=== PATIENT | male | born 1955 | race Two or more races ===

== ENCOUNTER 2017-10-05 13:47 | Inpatient (IN) | payer MEDICAID ==
[~2017-10-05] VITALS: Ht 177.8 cm; Wt 95.9 kg
--- NOTE | 2017-10-05 14:07 | NUR ---
DR HERNNADEZ AT BEDSIDE FOR EVAL.
--- NOTE | 2017-10-05 14:09 | NUR ---
IV LINE STARTED. BLOOD DRAWN AND SENT TO LAB.
--- NOTE | 2017-10-05 14:12 | NUR ---
PT PB FROM HOME TO ER BED 10. C/O L UPPER ARM PAIN S/P PULLING HIS SHEETS BY HIS RT ARM AND SOMEWHAT HIS L UPPER ARM WAS PULLED AND HEARD A "SNAP." DEFORMITY NOTED. 08/01 PAIN. R SHOULDER STATES BEEN BOTHERING HIM FOR DAYS NOW. GOWNED AND PLACED ON MONITOR. STABLE VITALS. AWAITING MD BENTLEY.
[2017-10-05 14:18] LABS: BASOPHILS # (AUTO) 0.1 /CMM (0.0-0.2); BASOPHILS % (AUTO) 0.6 % (0.0-2.0); EOSINOPHILS % (AUTO) 0.5 % (0.0-6.0); HEMATOCRIT 43 % (39-51); HEMOGLOBIN 14.4 g/dL (13.5-17.5); LYMPHOCYTES # (AUTO) 1.1 /CMM (0.8-4.8); LYMPHOCYTES % (AUTO) 11.6 % (20.0-44.0); MEAN CORPUSCULAR HEMOGLOBIN 31 PG (26.0-33.0); MEAN CORPUSCULAR HGB CONC 34 g/dl (31.0-36.0); MEAN CORPUSCULAR VOLUME 93 fL (80-96); MONOCYTES # (AUTO) 0.7 /CMM (0.1-1.30); MONOCYTES % (AUTO) 7.1 % (2.0-12.0); NEUTROPHILS # (AUTO) 7.5 /CMM (1.8-8.9); NEUTROPHILS % (AUTO) 80.2 % (43.0-81.0); PLATELET COUNT (AUTO) 175 /CMM (150-450); RDW COEFFICIENT OF VARIATION 18.7 (11.5-15.0); RED BLOOD CELL COUNT(AUTO) 4.61 MIL/uL (4.5-6.0); WHITE BLOOD COUNT (AUTO) 9.3 K/uL (4.3-11.0)
[2017-10-05] MEDS ORDERED: MORPHINE SULFATE INJ 2 MG/ML DISP.SYRIN ONE ×2 (14:22→15:14)
[2017-10-05] MEDS ORDERED: MORPHINE SULFATE INJ 4 MG/ML DISP.SYRIN ONE ×2 (14:22→15:14)
[2017-10-05] MEDS ORDERED: ONDANSETRON HCL/PF 4 MG/2 ML VIAL ONE (14:25)
--- NOTE | 2017-10-05 14:29 | NUR ---
RADIOLOGY AT BEDSIDE FOR L HUMERUS XRAY.
[2017-10-05] MEDS ORDERED: ONDANSETRON HCL/PF 4 MG/2 ML VIAL IVP ONE (14:30)
[2017-10-05] MEDS ORDERED: MORPHINE SULFATE INJ 2 MG/ML DISP.SYRIN IV ONE (14:30)
[2017-10-05 14:34] LABS: CALCIUM, SERUM 9.5 mg/dL (8.5-10.1); CREATININE 1.2 mg/dL (0.6-1.3); POTASSIUM 3.9 mmol/L (3.5-5.1)
[2017-10-05 14:40] LABS: INR 0.96 (0.87-1.13)
[2017-10-05] MEDS ORDERED: IBUP-1953 PO (14:53)
[2017-10-05] MEDS ORDERED: MORPHINE SULFATE INJ 10 MG/ML DISP.SYRIN IM ONE (15:30)
--- NOTE | 2017-10-05 15:33 | NUR ---
DR. DESTINEY BARILLAS.
--- NOTE | 2017-10-05 15:36 | NUR ---
ORTHO ON-CALL PAGED.
--- NOTE | 2017-10-05 16:37 | NUR ---
REPORT GIVEN TO BERT. PT AWAITING TRANSFER TO FLOOR.
[2017-10-05 16:50] VITALS: BP 126/78
[2017-10-05] MEDS ORDERED: MAG HYDROX/AL HYDROX/SIMETH 30 ML UDC PO PRN (17:00)
[2017-10-05] MEDS ORDERED: ZOLPIDEM TARTRATE 5 MG TABLET PO PRN (17:00)
[2017-10-05] MEDS ORDERED: ACETAMINOPHEN 325 MG TABLET PO PRN (17:00)
[2017-10-05] MEDS ORDERED: MAGNESIUM HYDROXIDE 30 ML UDC PO PRN (17:00)
[2017-10-05] MEDS ORDERED: Z GUARD REMEDY 2 OZ OINT TP PRN (17:00)
[2017-10-05] MEDS ORDERED: ONDANSETRON HCL/PF 4 MG/2 ML VIAL IVP PRN (17:00)
[2017-10-05] MEDS ORDERED: THIAMINE HCL 100 MG TABLET PO ONE (17:30)
--- NOTE | 2017-10-05 17:30 | NUR ---
MS RN RECEIVED A NEW ADMISSION FROM ER, AWAKE,ALERT,ORIENTED X4,NOT IN ANY FORM OF DISTRESS, RESPIRATIONS EVEN AND UNLABORED,NO SOB NOTED, LUNGS ARE CLEAR,ABDOMEN SOFT,POSITIVE BOWEL SOUNDS, DENIES PAIN AT THIS TIME, WILL MONITOR PATIENT, CAME IN W/ DX OF BILATERAL HUMERAL FRACTURE,ALL NEEDS ATTENDED.
[2017-10-05 17:44] LABS: TOTAL PROTEIN, SERUM 7.9 g/dL (6.4-8.2)
--- NOTE | 2017-10-05 17:59 | NUR ---
MS RN WAS SEEN BY DR. CONSTANCE Sullivan/ ORDERS MADE AND CARRIED OUT, WILL MONITOR PATIENT.
[2017-10-05] MEDS: HYDROCODONE/APAP 5/325MG 1 EACH TABLET PO PRN ×2 (18:13→22:46)
--- NOTE | 2017-10-05 18:52 | NUR ---
RN FOR SURGERY TOMORROW,CONSENT SIGNED.
[2017-10-05] MEDS ORDERED: LORAZEPAM INJ 2 MG/ML VIAL IV PRN (19:00)
[2017-10-05 19:16] LABS: THYROID STIMULATING HORMONE 0.516 uIU/mL (0.358-3.74)
--- NOTE | 2017-10-05 19:30 | NUR ---
BELT SANDER STONE OPENING NOTES RECEIVED PATIENT RESTING IN BED WATCHING TV, A & O X 4, RESP EVEN, NO ACUTE CHANGES NOTED. HAS MILD C/O PAIN TO BOTH ARMS BUT REFUSES TO TAKE PAIN MED @ THIS TIME & WILL LET THE NURSE KNOW WHEN THERE IS NEED FOR PAIN MED. ON TELE MONITORING WITH SR 83. WILL BE NPO AFTER MIDNIGHT FOR SCHEDULED SURGERY. IV ACCESS TO RFA, INTACT PATENT. BED IN LOW LOCKED POSITION. CALL LIGHT WITHIN REACH. WILL CONTINUE TO MONITOR CLOSELY.
[2017-10-05 20:00] VITALS: BP 153/101
[2017-10-05 20:12] VITALS: BP 137/86
[2017-10-05] MEDS: IV NS 0.9% 1,000 ML IV PRN (21:16)
--- NOTE | 2017-10-05 22:46 | NUR ---
PRN NORCO GIVEN PT C/O PAIN TO BOTH ARMS & ASKED FOR NORCO, WHICH IS EFFECTIVE FOR HIM (PER PT). PRN NORCO GIVEN & WILL REASSESS FOR EFFECTIVENESS.
[2017-10-06] VITALS (10 sets, daily range): BP systolic 121–187; BP diastolic 70–93
[2017-10-06] MEDS: HYDROCODONE/APAP 5/325MG 1 EACH TABLET PO PRN ×3 (03:03→20:36)
--- NOTE | 2017-10-06 03:03 | NUR ---
PRN NORCO GIVEN PT HAD C/O BILATERAL ARM PAIN, ASKED FOR PAIN MEDICINE, PRN NORCO GIVEN WITH SIP OF WATER. WILL REASSESS FOR EFFECTIVENESS.
[2017-10-06] MEDS: IV NS 0.9% 1,000 ML IV PRN (06:41)
--- NOTE | 2017-10-06 06:55 | NUR ---
BULB INSPECTOR CLOSING NOTES PT SLEPT INTERMITTENTLY @ NIGHT, A & O X 4, NO ACUTE CHANGES NOTED. ON TELE MONITORING WITH SR 77. PRN PAIN MEDS GIVEN DUE TO C/O PAIN TO BOTH ARMS & WAS EFFECTIVE. PT IS NPO AFTER MIDNIGHT FOR SCHEDULED SURGERY. HAS SLING TO RIGHT ARM & LEFT ARM COVERED WITH SUPPORTIVE BANDAGE. IV ACCESS TO RFA, INTACT PATENT, RUNNING WITH NS @ 100 ML/HR. BED IN LOW LOCKED POSITION. CALL LIGHT WITHIN REACH. WILL ENDORSE TO AM RN FOR CONTINUITY OF CARE.
--- NOTE | 2017-10-06 07:10 | NUR ---
OR NURSE CALLED OR NURSE CALLED TO CHECK IF PT IS READY FOR SURGERY, INFORMED HER THAT PT WILL BE SEEN BY DR IVEY YET TO CLEAR HIM FOR SURGERY. PER OR NURSE, TYPE & SCREEN NEEDS TO BE DONE. ENDORSED TO AM SHIFT RN TO CHECK WITH DR IVEY & TO HAVE TYPE & SCREEN DONE.
--- NOTE | 2017-10-06 07:30 | NUR ---
ROUNDSMAN INITIAL NOTES RECEIVED PATIENT IN BED, AOX3, NO SIGNS OF DISTRESS, ROOM AIR, CO OF PAIN DUE TO BILATERAL ARM FRACTURES, PAIN LEVEL 9/10 ON THE PAIN SCALE, WILL GIVE SCHEDULED NORCO, ON TELE MONITOR SR, NPO SINCE MIDNIGHT, IV RFA 18G NS @ 100ML/HR, AWAITING CONSULT BY DR IVEY TO CLEAR FOR SURGERY, SURGERY SCHEDULED FOR 10AM. ALL CONSENTS SIGNED, BED IN LOW AND LOCKED POSITION, CALL LIGHT WITHIN REACH, WILL CONTINUE TO MONITOR.
[2017-10-06 07:59] LABS: BASOPHILS # (AUTO) 0.1 /CMM (0.0-0.2); BASOPHILS % (AUTO) 0.8 % (0.0-2.0); EOSINOPHILS # (AUTO) 0.1 /CMM (0.0-0.7); EOSINOPHILS % (AUTO) 0.7 % (0.0-6.0); HEMATOCRIT 39 % (39-51); HEMOGLOBIN 13.2 g/dL (13.5-17.5); LYMPHOCYTES # (AUTO) 1.1 /CMM (0.8-4.8); LYMPHOCYTES % (AUTO) 12.9 % (20.0-44.0); MEAN CORPUSCULAR HEMOGLOBIN 32 PG (26.0-33.0); MEAN CORPUSCULAR HGB CONC 34 g/dl (31.0-36.0); MEAN CORPUSCULAR VOLUME 93 fL (80-96); MONOCYTES # (AUTO) 0.6 /CMM (0.1-1.30); NEUTROPHILS # (AUTO) 6.3 /CMM (1.8-8.9); NEUTROPHILS % (AUTO) 77.6 % (43.0-81.0); PLATELET COUNT (AUTO) 160 /CMM (150-450); RDW COEFFICIENT OF VARIATION 18.7 (11.5-15.0); RED BLOOD CELL COUNT(AUTO) 4.19 MIL/uL (4.5-6.0); WHITE BLOOD COUNT (AUTO) 8.2 K/uL (4.3-11.0)
[2017-10-06 08:12] LABS: CREATININE 1.1 mg/dL (0.6-1.3); MAGNESIUM 1.9 mg/dL (1.8-2.4); PHOSPHORUS 3.7 mg/dL (2.5-4.9); POTASSIUM 4.1 mmol/L (3.5-5.1)
[2017-10-06] MEDS: MULTIVITAMINS,THERAGRAN 1 UDTAB TABLET PO SCH (08:24)
[2017-10-06] MEDS ORDERED: ANESTHESIA TRAY IN PYXIS 1 EA TRAY MC ONE (08:40)
[2017-10-06] MEDS ORDERED: IV NS 0.9% 1,000 ML BAG IV SCH (09:00)
[2017-10-06] MEDS ORDERED: BACITRACIN 50000 UNITS/VIAL ONE (09:12)
--- NOTE | 2017-10-06 09:45 | NUR ---
MOTOR DRIVER NOTES PATIENT TAKEN TO OR FOR SURGERY, CLEARED BY CARDIO, DR NOLASCO AWARE OF ELEVATED BLOOD PRESSURE 187/76, OK FOR SURGERY.
[2017-10-06] MEDS ORDERED: FENTANYL PF 100MCG/2ML AMPUL ONE (09:55)
[2017-10-06] MEDS ORDERED: MORPHINE SULFATE INJ 10 MG/ML DISP.SYRIN ONE (09:55)
[2017-10-06] MEDS ORDERED: MIDAZOLAM HCL 2 MG/2ML VIAL ONE (10:00)
[2017-10-06] MEDS ORDERED: oxyCODONE/APAP (5/325 MG) 1 UDTAB TABLET PO PRN (13:30)
--- NOTE | 2017-10-06 13:58 | NUR ---
RESTUARANT CREW WORKER NOTES\ PATIENT RETURNED FROM SURGERY, STABLE, BILATERAL SLINGS ON BOTH ARMS, NEW IV PLACED ON LEFT FOOT DUE BOTH ARMS NEEDED FOR SURGERY ACCESS. OXYGEN ON ROOM AIR 92 PLACED ON 2L NASAL CANNULA WILL CONTINUE TO MONITOR. NO REQUEST FOR PAIN MEDICATION AT THIS TIME.
--- NOTE | 2017-10-06 16:48 | NUR ---
HEALTH AND FITNESS PROFESSOR NOTES PATIENT GETTING ECHO DONE.
--- NOTE | 2017-10-06 18:38 | NUR ---
TELEPHONE CLERK END NOTES PATIENT RESTING IN BED, NO SIGNS OF DISTRESS, ALL NEEDS ATTENDED TO, PATIENTS GF AT BEDSIDE FEEDING PATIENT , PAIN ASSESSED MEDICATIONS GIVEN, WILL ENDORSE TO ARCHITECTURE DRAFTER FOR CONTINUITY OF CARE.
--- NOTE | 2017-10-06 19:30 | NUR ---
RN NOTES: RECEIVED AWAKE ON BED,ON SEMI FOWLERS POSITION,BILATERAL SLINGS ON BOTH ARMS,NWB-BUE,IV LINE ON LEFT FOOT WITH IVF ONGOING.ON O2 AT 2L/MIN SPO2-99%,A/OX4,COOPERATIVE,CONTINENT USING URINAL,FALL,SAFETY AND ASPIRATION PRECAUTION OBSERVE, CALL LIGHT WITHIN EASY REACH, BED LOW AND LOCKED.
--- NOTE | 2017-10-06 20:00 | NUR ---
RN NOTES: FOR CT CHEST, HIS HAVING INTERMITTENT PAIN PER [facility](X-RAY DEPT) ITS NOT STAT ORDER, PATIENT REQUEST IF CAN BE DONE TOMORROW MORNING, SCHEDULED AT 9-10AM.KEPT RESTED AND MONITOR CLOSELY.ON ICE PACK.
--- NOTE | 2017-10-06 20:38 | NUR ---
RN NOTES: COMPLAINED OF PAIN 05/01 ON BUE. REQUEST FOR NORCO,GIVEN, NON PHARMACOLOGIC INTERVENTION RENDERED, DIM LIGHT AND ICE PACK RENDERED.WILL CONTINUE TO MONITOR FOR PAIN AND DISCOMFORT.
--- NOTE | 2017-10-06 21:40 | NUR ---
RN NOTES: ABLE TO SLEEP AT SHORT INTERVALS, STILL WITH INTERMITTEN PAIN, WILL CONTINUE TO MONITOR, KEPT IN COMFORTABLE POSITION.
[2017-10-07] MEDS: HYDROCODONE/APAP 5/325MG 1 EACH TABLET PO PRN ×7 (00:52→21:33)
--- NOTE | 2017-10-07 00:53 | NUR ---
RN NOTES: AWAKE, REQUEST FOR HIS PAIN MEDICATION 05/01 ON BUE,NON PHARMACOLOGIC INTERVENTION RENDERED, PRN MEDS GIVEN.KEPT IN COMFORTABLE POSITION.
--- NOTE | 2017-10-07 01:18 | NUR ---
RN NOTES: ABLE TO SLEEP AT SHORT INTERVALS, KEPT ON CLOSE VISUAL CHECK AND MONITOR FOR PAIN.CALL LIGHT WITHIN EASY REACH.
--- NOTE | 2017-10-07 02:00 | NUR ---
RN NOTES: ASLEEP,KEPT ON CLOSE WATCH.CALL LIGHT WITHIN EASY REACH, CALLS AND NEEDS ATTENDED.
[2017-10-07] MEDS: IV NS 0.9% 1,000 ML IV PRN (04:59)
--- NOTE | 2017-10-07 05:13 | NUR ---
RN NOTES: AFTER REPOSITIONING, COMPLAINED OF PAIN 05/01,REQUEST FOR NORCO, PAIN MEDICATION PRN GIVEN.IVF OF N/S AT 100ML/HR REGULATED VIA INFUSION PUMP.CALLS AND NEED ATTENDED.
--- NOTE | 2017-10-07 06:45 | NUR ---
RN NOTES: AWAKE IN BETWEEN, WATCHING TV, STILL WITH ON AND OFF PAIN, KEPT MONITORED,CALL LIGHT WITHIN EASY REACH, ENDORSED FOR CONTINUITY OF CARE.
--- NOTE | 2017-10-07 07:36 | NUR ---
MS RN OPENING NOTES RECEIVED PATIENT IN STABLE CONDITION. IN NO APPARENT DISTRESS. PATIENT IS RESTING IN BED. BEDSIDE RAILS ARE UP X2. BED IS LOCKED AND LOWERED. CALL LIGHT IS WITHIN REACH. WILL CONTINUE TO MONITOR.
[2017-10-07 08:00] VITALS: BP 136/79
[2017-10-07 08:13] LABS: FERRITIN 117 ng/mL (8-388)
[2017-10-07 08:25] LABS: ALBUMIN 2.5 g/dL (3.4-5.0); CALCIUM, SERUM 8.7 mg/dL (8.5-10.1); POTASSIUM 3.9 mmol/L (3.5-5.1); TOTAL PROTEIN, SERUM 6.8 g/dL (6.4-8.2)
--- NOTE | 2017-10-07 08:28 | NUR ---
PATIENT IN SURGERY YESTERDAY HAD RT AND LT HUMERUS IMAGES DONE ON LARGE C -ARM BUT THE DOCTOR ACCIDENTALLY UNPLUG THE C-ARM MONITOR ,LT HUMERUS IMAGES WAS DELETED PER JESÚS GUTIERREZ.
[2017-10-07] MEDS: MULTIVITAMINS,THERAGRAN 1 UDTAB TABLET PO SCH (09:03)
[2017-10-07] MEDS: FOLIC ACID 1 MG TABLET PO SCH (09:03)
[2017-10-07] MEDS: CYANOCOBALAMIN 500 MCG TABLET PO SCH (09:03)
[2017-10-07 09:12] LABS: IRON, SERUM 29 ug/dl (50-175); TOTAL IRON BINDING CAPACITY 296 ug/dl (250-450)
[2017-10-07] MEDS ORDERED: IOHEXOL-300 100 ML VIAL IV ONE (10:32)
[2017-10-07 16:00] VITALS: BP 147/88
[2017-10-07] MEDS: FERROUS SULFATE (325 MG) 325 MG/TAB TABLET PO SCH (17:18)
--- NOTE | 2017-10-07 18:47 | NUR ---
MS RN CLOSING NOTES PATIENT IS IN STABLE CONDITION. IN NO APPARENT DISTRESS. BEDSIDE RAILS ARE UP X2. BED IS LOCKED AND LOWERED. ALL NEEDS WERE MET. CALL LIGHT IS WITHIN REACH. WILL ENDORSE CARE TO GUSSET FOLDER NURSE FOR AIDEN.
--- NOTE | 2017-10-07 19:25 | NUR ---
MS/SPEECH PATHOLOGIST ASSISTANT; RECEIVED PT'S REPORTS FROM THE DAY SHIFT RN FOR CONTINUITY OF CARE. AT THIS TIME PT IS IN BED AWAKE QUIET, ALERT. DENIES PAIN. BOTH SHOULDERS INCISIONS WITH DRESSINGS ON INTACT AND DRY. BOTH ARMS WITH SLING ON. HL INTACT ON LT FOOT . BED ON LOWER POSITION AND LOCKED FOR SAFETY. SIDE RAILS ARE UP FOR SAFETY. CALL LIGHT WITHIN REACH. WITH SITTER PRESENT IN THE ROOM FOR SAFETY. WILL CONTINUE TO MONITOR.
[2017-10-07 20:00] VITALS: BP 154/70
[2017-10-08 01:30] VITALS: BP 149/72
[2017-10-08] MEDS: HYDROCODONE/APAP 5/325MG 1 EACH TABLET PO PRN ×6 (01:44→21:46)
[2017-10-08 05:45] VITALS: BP 160/78
--- NOTE | 2017-10-08 06:57 | NUR ---
MS/LACING CUTTER; PT SLEPT FAIRLY. BREATHING NON LABORED. PT HAS BEEN C/O PAIN BOTH ARMS DURING THE NIGHT AND PRN FOR PAIN HAS BEEN WITH GOOD RELIEF. CONTINUE TO MONITOR. CALL LIGHT WITHIN REACH. WILL ENDORSE TO THE DAY SHIFT RN FOR CONTINUITY OF CARE.
[2017-10-08 07:38] LABS: BASOPHILS % (AUTO) 0.4 % (0.0-2.0); EOSINOPHILS # (AUTO) 0.1 /CMM (0.0-0.7); EOSINOPHILS % (AUTO) 1.4 % (0.0-6.0); HEMATOCRIT 33 % (39-51); HEMOGLOBIN 11.1 g/dL (13.5-17.5); LYMPHOCYTES # (AUTO) 0.9 /CMM (0.8-4.8); LYMPHOCYTES % (AUTO) 12.5 % (20.0-44.0); MEAN CORPUSCULAR HEMOGLOBIN 32 PG (26.0-33.0); MEAN CORPUSCULAR HGB CONC 34 g/dl (31.0-36.0); MEAN CORPUSCULAR VOLUME 94 fL (80-96); MONOCYTES # (AUTO) 0.6 /CMM (0.1-1.30); MONOCYTES % (AUTO) 8.2 % (2.0-12.0); NEUTROPHILS # (AUTO) 5.5 /CMM (1.8-8.9); NEUTROPHILS % (AUTO) 77.5 % (43.0-81.0); PLATELET COUNT (AUTO) 152 /CMM (150-450); RDW COEFFICIENT OF VARIATION 18.4 (11.5-15.0); RED BLOOD CELL COUNT(AUTO) 3.52 MIL/uL (4.5-6.0); WHITE BLOOD COUNT (AUTO) 7.1 K/uL (4.3-11.0)
[2017-10-08 07:58] LABS: POTASSIUM 3.7 mmol/L (3.5-5.1)
[2017-10-08 08:00] VITALS: BP 143/81
[2017-10-08] MEDS: CYANOCOBALAMIN 500 MCG TABLET PO SCH (08:04)
[2017-10-08] MEDS: MULTIVITAMINS,THERAGRAN 1 UDTAB TABLET PO SCH (08:04)
[2017-10-08] MEDS: FERROUS SULFATE (325 MG) 325 MG/TAB TABLET PO SCH ×2 (08:04→16:34)
[2017-10-08] MEDS: ERGOCALCIFEROL (VITAMIN D 2) 50,000 UNIT CAPSULE PO SCH (08:04)
[2017-10-08] MEDS: FOLIC ACID 1 MG TABLET PO SCH (08:04)
[2017-10-08 16:00] VITALS: BP 138/84
--- NOTE | 2017-10-08 18:48 | NUR ---
MS RN CLOSING NOTES PATIENT IS IN STABLE CONDITION. IN NO APPARENT DISTRESS. PATIENT IS RELAXING IN BED. CALL LIGHT IS WITHIN REACH BEDSIDE RAILS ARE UP X2. BED IS LOCKED AND LOWERED. ALL NEEDS WERE MET. WILL ENDORSE CARE TO COMPOSITION ROLL MAKER AND CUTTER NURSE FOR AIDEN.
--- NOTE | 2017-10-08 19:25 | NUR ---
MS RN OPENING NOTES: RECEIVED PT IN BED AND IS AWAKE. PT A/OX4. PT SITTING UP IN BED WITHOUT THE SLINGS ON BILATERAL ARMS. NO SOB NOTED. NO S/S OF DISTRESS NOTED AT THIS TIME. PT SAID HE DOES NOT WANT TO WEAR IT AT THIS TIME. PT HAS IV ON L FOOT #22G AND IS CURRENTLY S/L. CALL LIGHT WITHIN PT'S REACH. BED KEPT IN LOW, LOCKED POSITION, AND SIDE RAILS X 2 UP. WILL CONTINUE TO MONITOR PT.
[2017-10-08 20:00] VITALS: BP 138/68
--- NOTE | 2017-10-08 21:46 | NUR ---
MS RN NOTES: PT IS COMPLAINING OF 8/10 BILATERAL ARM AND ELBOW PAIN. PT WAS ADMINISTERED 2 TABS OF NORCO 5. WILL CONTINUE TO MONITOR PT.
[2017-10-09] MEDS: HYDROCODONE/APAP 5/325MG 1 EACH TABLET PO PRN ×6 (01:49→22:40)
--- NOTE | 2017-10-09 01:49 | NUR ---
MS RN NOTES: PT COMPLAINING OF LEFT AND RIGHT ARM AND ELBOW PAIN 05/01. PT WAS ADMINISTERED 2 TABS OF NORCO 5. WILL CONTINUE TO MONITOR PT.
--- NOTE | 2017-10-09 06:50 | NUR ---
MS RN CLOSING NOTES: ALL NEEDS WERE ATTENDED AND ANTICIPATED FOR. PT IN BED AND IS RESTING AT THIS TIME. PT A/OX4. PT SITTING UP IN BED WITHOUT THE SLINGS ON BILATERAL ARMS. OFFERED PT TO PUT ON SLINGS BUT WOULD LIKE TO LEAVE IT OFF AND HAVE THEM APPLIED WHEN SEEN BY PT. NO SOB NOTED. NO S/S OF DISTRESS NOTED AT THIS TIME. PT HAS IV ON L FOOT #22G AND IS CURRENTLY S/L. CALL LIGHT WITHIN PT'S REACH. BED KEPT IN LOW, LOCKED POSITION, AND SIDE RAILS X 2 UP. WILL ENDORSE TO AM NURSE FOR AIDEN.
[2017-10-09 07:04] LABS: BASOPHILS % (AUTO) 0.3 % (0.0-2.0); EOSINOPHILS # (AUTO) 0.2 /CMM (0.0-0.7); EOSINOPHILS % (AUTO) 1.9 % (0.0-6.0); HEMATOCRIT 36 % (39-51); HEMOGLOBIN 11.9 g/dL (13.5-17.5); LYMPHOCYTES # (AUTO) 1.1 /CMM (0.8-4.8); LYMPHOCYTES % (AUTO) 12.5 % (20.0-44.0); MEAN CORPUSCULAR HEMOGLOBIN 32 PG (26.0-33.0); MEAN CORPUSCULAR HGB CONC 34 g/dl (31.0-36.0); MEAN CORPUSCULAR VOLUME 94 fL (80-96); MONOCYTES # (AUTO) 0.8 /CMM (0.1-1.30); MONOCYTES % (AUTO) 9.1 % (2.0-12.0); NEUTROPHILS # (AUTO) 6.8 /CMM (1.8-8.9); NEUTROPHILS % (AUTO) 76.2 % (43.0-81.0); PLATELET COUNT (AUTO) 204 /CMM (150-450); RDW COEFFICIENT OF VARIATION 18.5 (11.5-15.0); RED BLOOD CELL COUNT(AUTO) 3.78 MIL/uL (4.5-6.0); WHITE BLOOD COUNT (AUTO) 8.9 K/uL (4.3-11.0)
[2017-10-09 07:47] LABS: CALCIUM, SERUM 9.5 mg/dL (8.5-10.1); POTASSIUM 3.8 mmol/L (3.5-5.1)
--- NOTE | 2017-10-09 07:59 | NUR ---
MS RN NOTES' PATIENT IN BED, AWAKE, A/O X4. ON ROOM AIR, TOLERATING WELL. NO SOB. BILATERAL SHOULDER SURGICAL INCISION, DRESSING INTACT, NO BLEEDING NOTED. APPEARS COMFORTABLE IN BED, IVC IN LEFT FOOT G20 INTACT. CALL LIGHT WITHIN REACH. WILL CONT TO MONITOR.
[2017-10-09 08:00] VITALS: BP 163/79
[2017-10-09 08:14] LABS: *SPE A/G RATIO 0.9 (0.7-1.7); *SPE ALBUMIN 3.2 g/dL (2.9-4.4); *SPE ALPHA-1-GLOBULIN 0.3 g/dL (0.0-0.4); *SPE GLOBULIN, TOTAL 3.7 g/dL (2.2-3.9); *SPE M-SPIKE Not Observed g/dL (Not Observed); *SPEGAMMA GLOBULIN 1.4 g/dL (0.4-1.8)
[2017-10-09] MEDS: FERROUS SULFATE (325 MG) 325 MG/TAB TABLET PO SCH ×2 (08:17→16:23)
[2017-10-09] MEDS: CYANOCOBALAMIN 500 MCG TABLET PO SCH (08:17)
[2017-10-09] MEDS: FOLIC ACID 1 MG TABLET PO SCH (08:17)
[2017-10-09] MEDS: MULTIVITAMINS,THERAGRAN 1 UDTAB TABLET PO SCH (09:49)
[2017-10-09 16:00] VITALS: BP 179/80
--- NOTE | 2017-10-09 16:07 | NUR ---
PATIENT IS SEEN BY PT TODAY, PARTICIPATED WELL. PATIENT AMBULATE WITH PT, TOLERATED WELL.
[2017-10-09 16:40] VITALS: BP 179/80
--- NOTE | 2017-10-09 16:40 | NUR ---
ELEVATED BP 179/80 P 96. RECORDS SHOWED INCREASING BP SINCE Sep, PATIENT IS NOT ON ANY SCHEDULED OR PRN BP MEDS. CALLED SPOKE TO DR. NOLASCO, PATIENT HAD PT TODAY AND MEDICATED WITH NORCO PO PRN DURING THE SHIFT, PER MD TO CONTINUE MONITOR PATIENT, NO BP MEDS AT THIS TIME, POSSIBLE INCREASING BP DUE TO FRACTURE AND PAIN. WILL ENDORSE TO DIRECTOR LAW ENFORCEMENT RN.
[2017-10-09 18:08] VITALS: BP 160/88
--- NOTE | 2017-10-09 18:52 | NUR ---
MS RN CLOSING NOTES PATIENT IN BED, A/O X4. BREATHING EVEN AND NON LABORED, NO SOB. BILATERAL UPPER ARM/SHOULDER DRESSING INTACT, ARM SLING NOT IN PLACE, PER PATIENT ITS COMFORTABLE WEARING IT WHILE UP IN CHAIR AND WALKING ONLY. SUPPORTED BOTH ARMS WITH PILLOWS WHILE IN BED. MEDICATED WITH PRN NORCO DURING THE SHIFT. ELEVATED BP DUE TO PAIN AND FRACTURE, MD IS AWARE, PER MD TO CONT MONITOR BP. DC PLANNING, CM IS AWARE. WILL ENDORSE TO SEAMER ELASTIC BAND RN FOR AIDEN.
--- NOTE | 2017-10-09 19:15 | NUR ---
MS RN OPENING NOTES: RECEIVED PT IN BED AND IS A/OX4. SITTER AT BEDSIDE. PATIENT IN BED, A/O X4. BREATHING EVEN AND NON LABORED, NO SOB. BILATERAL UPPER ARM/SHOULDER DRESSING INTACT. PT DOES NOT WANT TO WEAR ARM SLING ON BOTH LEFT AND RIGHT ARMS. SUPPORTED BOTH ARMS WITH PILLOWS WHILE IN BED. CALL LIGHT WITHIN PT'S REACH. BED KEPT IN LOW, LOCKED POSITION, AND SIDE RAILS X 2 UP. IV ON FOOT INTACT. WILL CONTINUE TO MONITOR PT.
[2017-10-09 20:00] VITALS: BP 174/79
--- NOTE | 2017-10-09 22:41 | NUR ---
MS RN NOTES: PT COMPLAINING OF BILATERAL ARM AND ELBOW PAIN 07/02. PT WAS ADMINISTERED 2 TABS OF NORCO 5. WILL CONTINUE TO MONITOR PT.
[2017-10-10] VITALS: BP 163/77
[2017-10-10] MEDS: HYDROCODONE/APAP 5/325MG 1 EACH TABLET PO PRN ×5 (02:40→20:40)
[2017-10-10 04:00] VITALS: BP 156/67
[2017-10-10 07:02] VITALS: BP 143/85
--- NOTE | 2017-10-10 07:20 | NUR ---
RN OPENING NOTES RECEIVED PATIENT IN BED RESTING, SITTER AT BEDSIDE, A/O X4. BREATHING EVEN AND NON LABORED, NO ACUTE DISTRESS, NO SOB. IV SITE INTACT AND PATENT. BILATERAL UPPER ARM/SHOULDER DRESSING INTACT. PT DOES NOT WANT TO WEAR ARM SLING ON BOTH LEFT AND RIGHT ARMS. SUPPORTED BOTH ARMS WITH PILLOWS WHILE IN BED. KEPT PATIENT SAFE AND COMFORTABLE. CALL LIGHT WITHIN REACH. BED KEPT IN LOW, LOCKED POSITION, AND SIDE RAILS X 2 UP. WILL CONTINUE TO MONITOR ACCORDINGLY.
--- NOTE | 2017-10-10 07:42 | NUR ---
MS RN CLOSING NOTES: ALL NEEDS WERE ATTENDED AND ANTICIPATED FOR. PT IS LAYING DOWN IN BED AT THIS TIME. SITTER AT BEDSIDE. PATIENT IN BED, A/O X4. BREATHING EVEN AND NON LABORED, NO SOB. BILATERAL UPPER ARM/SHOULDER DRESSING INTACT. PT DOES NOT WANT TO WEAR ARM SLING ON BOTH LEFT AND RIGHT ARMS. SUPPORTED BOTH ARMS WITH PILLOWS WHILE IN BED. MONITORED BLOOD PRESSURE THROUGHOUT SHIFT. BP ELEVATED D/T PAIN BUT GRADUALLY DECREASED WITH NORCO 5 2 TABS. CALL LIGHT WITHIN PT'S REACH. BED KEPT IN LOW, LOCKED POSITION, AND SIDE RAILS X 2 UP. IV ON FOOT INTACT. ENDORSED TO AM NURSE FOR AIDEN.
[2017-10-10 08:00] VITALS: BP_SYST 159; BP_SYST 167; BP_DIAS 76; BP_DIAS 80
[2017-10-10] MEDS ORDERED: FERR325T28 PO (09:04)
[2017-10-10] MEDS ORDERED: MULT-24 PO (09:04)
[2017-10-10] MEDS ORDERED: HYDR-3326 PO (09:04)
[2017-10-10] MEDS ORDERED: CYAN500T4 PO (09:04)
[2017-10-10] MEDS ORDERED: FOLI1TAB16 PO (09:04)
[2017-10-10] MEDS ORDERED: Ergocalciferol (Vitamin D 2) PO (09:04)
[2017-10-10] MEDS ORDERED: ASPI-992 PO (09:04)
[2017-10-10] MEDS: FOLIC ACID 1 MG TABLET PO SCH (09:39)
[2017-10-10] MEDS: FERROUS SULFATE (325 MG) 325 MG/TAB TABLET PO SCH ×2 (09:39→16:19)
[2017-10-10] MEDS: MULTIVITAMINS,THERAGRAN 1 UDTAB TABLET PO SCH (09:40)
[2017-10-10] MEDS: CYANOCOBALAMIN 500 MCG TABLET PO SCH (09:40)
[2017-10-10 16:00] VITALS: BP_SYST 160; BP_SYST 175; BP_DIAS 79; BP_DIAS 80
--- NOTE | 2017-10-10 19:30 | NUR ---
RN CLOSING NOTES PATIENT IN BED RESTING, NO ACUTE DISTRESS, NO SOB NOTED. ALL NEEDS ATTENDED AND PROVIDED. KEPT PATIENT SAFE AND COMFORTABLE. PATIENT WALKED WITH PT TODAY, TOLERATED WELL. ALL MEDICATIONS GIVEN ORDERED. MONITORED BP THROUGHOUT THE SHIFT, BP ELEVATED DUE TO PAIN BUT GRADUALLY DECREASED WITH 2 TAB NORCO 5 ( ORDERED). DISCHARGE WAS HELD DUE TO NO CAREGIVER AT HOME PER CASE MANAGEMENT. KEPT PATIENT SAFE AND COMFORTABLE. BED IN LOCKED, LOW LOW POSITION, SIDERAILS UPX2. CALL LIGHT IN REACH. ENDORSED TO NIGHT RN FOR AIDEN.
--- NOTE | 2017-10-10 19:50 | NUR ---
MS RN NOTE: PATIENT RESTING IN BED, NO ACUTE DISTRESS NOTED. BREATHING EVEN AND UNLABORED, NO SOB NOTED. IV TO LEFT FOOT IN PLACE. DRESSING TO BOTH ARMS CLEAN AND IN PLACE. BED LOCKED AND IN LOWEST POSITION, CALL LIGHT IN REACH. WILL CONTINUE TO MONITOR.
[2017-10-10 20:00] VITALS: BP 140/71
--- NOTE | 2017-10-10 20:45 | NUR ---
MS RN NOTE: PATIENT COMPLAINS OF PAIN TO BOTH ARMS 7-8/, NORCO 5/325MG 2 TABS ORAL GIVEN PER MD ORDER. WILL CONTINUE TO MONITOR.
[2017-10-11] MEDS: HYDROCODONE/APAP 5/325MG 1 EACH TABLET PO PRN ×6 (00:40→21:23)
--- NOTE | 2017-10-11 00:45 | NUR ---
MS RN NOTE: PATIENT COMPLAINS OF PAIN TO BOTH ARMS 7-8/, NORCO 5/325MG 2 TABS ORAL GIVEN PER MD ORDER. WILL CONTINUE TO MONITOR.
--- NOTE | 2017-10-11 04:50 | NUR ---
MS RN NOTE: PATIENT COMPLAINS OF PAIN TO BOTH ARMS 7-8/, NORCO 5/325MG 2 TABS ORAL GIVEN PER MD ORDER. WILL CONTINUE TO MONITOR.
--- NOTE | 2017-10-11 06:30 | NUR ---
MS RN NOTE: PATIENT RESTING IN BED, NO ACUTE DISTRESS NOTED. BREATHING EVEN AND UNLABORED, NO SOB NOTED. IV TO LEFT FOOT IN PLACE. DRESSING TO BOTH ARMS CLEAN AND IN PLACE. BED LOCKED AND IN LOWEST POSITION, CALL LIGHT IN REACH. WILL ENDORSE TO DAY NURSE TO CONTINUE WITH PLAN OF CARE.
--- NOTE | 2017-10-11 07:55 | NUR ---
MS RN OPENING NOTE PATIENT IS ALERT AND ORIENTED x4. NO PAIN AT THIS TIME. NO SOB OR DISTRESS NOTED. CALL LIGHT WITHIN REACH. SAFETY MEASURES IMPLEMENTED. ABLE TO COMMUNICATE NEEDS. S/P ORIF ON BILATERAL SHOULDERS. AMBULATORY WITH ASSISTANCE. IV INTACT AND PATENT NO REDNESS OR SWELLING NOTED. NO IV FLUIDS RUNNING AT THIS TIME. POSSIBLE DISCHARGE. WILL CONTINUE TO MONITOR THROUGHOUT SHIFT
[2017-10-11 08:00] VITALS: BP 160/77
[2017-10-11] MEDS: FERROUS SULFATE (325 MG) 325 MG/TAB TABLET PO SCH ×2 (08:09→17:23)
[2017-10-11] MEDS: CYANOCOBALAMIN 500 MCG TABLET PO SCH (08:09)
[2017-10-11] MEDS: MULTIVITAMINS,THERAGRAN 1 UDTAB TABLET PO SCH (08:09)
[2017-10-11] MEDS: FOLIC ACID 1 MG TABLET PO SCH (08:09)
[2017-10-11 08:18] LABS: *IFEU ALBUMIN 13.5 % (.); *IFEU ALPHA-1-GLOBULIN 8.7 % (.); *IFEU BETA GLOBULIN 27.3 % (.); *IFEU GAMMA GLOBULIN 27.4 % (.); *IFEU M-SPIKE Not Observed % (Not Observed); *PEU PROTEIN,TOTAL 43.5 mg/dL (Not Estab.)
[2017-10-11 16:00] VITALS: BP 162/72
--- NOTE | 2017-10-11 18:55 | NUR ---
MS RN CLOSING NOTE PATIENT IS ALERT AND ORIENTED X4. NO PAIN AT THIS TIME. NO SOB OR DISTRESS NOTED. CALL LIGHT WITHIN REACH AT ALL TIMES. SAFETY MEASURES IMPLEMENTED. ABLE TO COMMUNICATE NEEDS. ALL DUE MEDICATIONS GIVEN ORDERED. ALL NURSING CARE NEEDS ATTENDED TO NEEDED. AMBULATORY WITH ASSISTANCE. NON WEIGHT BEARING ON BILATERAL UPPER EXTREMITIES. SLING ON AT ALL TIMES. PATIENT TO BE NPO AT MIDNIGHT FOR US GUIDED OR CT GUIDED CHEST WALL BIOPSY TOMORROW 10/12/17. CONSENTS OBTAINED AND PLACED IN CHART. WILL ENDORSE TO PRODUCT FINISHER NURSE FOR AIDEN
--- NOTE | 2017-10-11 19:45 | NUR ---
RN MS - INITIAL NOTES RECEIVED PATIENT IN BED, ALERT AND ORIENTED X4. NO S/S OF SOB OR ANY DISCOMFORT NOTED. PATIENT INSTRUCTED TO USE CALL LIGHT WHEN ASSISTANCE IS NEEDED. BED IN LOW POSITION AND LOCKED. SIDERAILS X2 UP. WILL CONTINUE TO MONITOR PATIENT.
[2017-10-11 20:00] VITALS: BP 145/69
[2017-10-11 20:15] VITALS: BP 145/69
[2017-10-12 07:43] LABS: BASOPHILS % (AUTO) 0.1 % (0.0-2.0); EOSINOPHILS # (AUTO) 0.2 /CMM (0.0-0.7); EOSINOPHILS % (AUTO) 2.1 % (0.0-6.0); HEMATOCRIT 35 % (39-51); HEMOGLOBIN 11.8 g/dL (13.5-17.5); LYMPHOCYTES # (AUTO) 0.9 /CMM (0.8-4.8); LYMPHOCYTES % (AUTO) 11.4 % (20.0-44.0); MEAN CORPUSCULAR HEMOGLOBIN 31 PG (26.0-33.0); MEAN CORPUSCULAR HGB CONC 34 g/dl (31.0-36.0); MEAN CORPUSCULAR VOLUME 92 fL (80-96); MONOCYTES # (AUTO) 0.8 /CMM (0.1-1.30); MONOCYTES % (AUTO) 10.4 % (2.0-12.0); NEUTROPHILS # (AUTO) 5.8 /CMM (1.8-8.9); PLATELET COUNT (AUTO) 210 /CMM (150-450); RDW COEFFICIENT OF VARIATION 17.9 (11.5-15.0); RED BLOOD CELL COUNT(AUTO) 3.77 MIL/uL (4.5-6.0); WHITE BLOOD COUNT (AUTO) 7.7 K/uL (4.3-11.0)
[2017-10-12 07:58] LABS: CALCIUM, SERUM 9.7 mg/dL (8.5-10.1); CREATININE 1.1 mg/dL (0.6-1.3); MAGNESIUM 1.9 mg/dL (1.8-2.4); PHOSPHORUS 4.3 mg/dL (2.5-4.9); POTASSIUM 3.8 mmol/L (3.5-5.1)
[2017-10-12 08:00] VITALS: BP 138/70
[2017-10-12 08:05] LABS: INR 1.01 (0.87-1.13); PROTHROMBIN TIME 10.5 SECS (9.5-12.7)
--- NOTE | 2017-10-12 08:29 | NUR ---
RN OPENING NOTES RECEIVED PATIENT RESTING COMFORTABLY IN BED. AOX3. PATIENT HAS A SITTER AT THE BED SIDE FOR SAFETY AND ASSISTANCE. PATIENT NPO SINCE MIDNIGHT FOR CT GUIDED CHEST WALL BIOPSY. DENIES ANY CP, SOB. COMPLAINING OF PAIN IN BOTH ARMS. NEW IV ACCESS PLACED IN THE LEFT FOREARM 20G FOR CT. TOLERATED WELL. ONE ATTEMPT. PATENT AND INTACT. BED LOCKED IN THE LOWEST POSITION. SIDE RAILS UP X2. CALL LIGHT WITHIN REACH. WILL CONTINUE TO MONITOR, ASSESS AND EDUCATE PATIENT THROUGHOUT SHIFT.
[2017-10-12] MEDS ORDERED: FENTANYL PF 250MCG/5ML AMPUL IV ONE (09:00)
[2017-10-12] MEDS ORDERED: NALOXONE PREFILLED SYRINGE 2 MG/2 ML SYRINGE IV ONE (09:00)
[2017-10-12] MEDS ORDERED: MIDAZOLAM HCL 5MG/ML VIAL 25 MG/5 ML VIAL IV ONE (09:00)
--- NOTE | 2017-10-12 09:30 | NUR ---
RN NOTES PATIENT TAKEN FOR CT GUIDED BIOPSY. PATIENT SIGNED CONSENT. WILL GIVE MEDS WHEN PATIENT RETURNS. PATIENT REPORTED TO BE ON STRICT NPO
--- NOTE | 2017-10-12 11:00 | NUR ---
SERVICE CENTER MANAGER MODERATE SEDATION NOTE PT TAKEN DOWN FOR CT GUIDED NEEDLE BIOPSY OF LEFT CHEST WALL MASS. PRE OP SBP IS HYPERTENSIVE AT 170'S RADIOLOGIST MD AWARE. DURING THE PROCEDURE A TOTAL OF 0.5 MG OF IV VERSED WAS ADMINSTERED, WITH VITALS REMAINING STABLE, BUT A DROP IN BLOOD PRESSURE FROM 170'S TO 140'S. SPO2 REMAINED STABLE ABOVE 93% WHILE ON 2L NC. POST OP, PT VITALS ARE CONSISTENT WITH THE SBP HIGH 180'S LIKELY DUE TO PAIN. TRANSPORTED BACK TO [facility] AND TRANSFERRED BACK TO HIS BED, STABLE ON RA, PT HAS SAME BASELINE ORIENTATION FROM BEFORE PROCEDURE. ORDERS FOR STANDARD CHEST XRAY 2 HOURS AFTER PROCEDURE TO R/O PNEUMOTHORAX. THE REST OF VERSED WASTED WITH DR. DE LA TORRE A WITNESS. UNOPENED FENTANYL AND NARCAN RETURNED TO PHARMACY.
--- NOTE | 2017-10-12 11:11 | NUR ---
RN NOTES PATIENT RETURNED FROM CT GUIDED BIOPSY. MORNING MEDICATIONS GIVEN.
[2017-10-12] MEDS: FERROUS SULFATE (325 MG) 325 MG/TAB TABLET PO SCH ×2 (11:29→17:47)
[2017-10-12] MEDS: CYANOCOBALAMIN 500 MCG TABLET PO SCH (11:29)
[2017-10-12] MEDS: FOLIC ACID 1 MG TABLET PO SCH (11:29)
[2017-10-12] MEDS: MULTIVITAMINS,THERAGRAN 1 UDTAB TABLET PO SCH (11:29)
[2017-10-12] MEDS: oxyCODONE/APAP (5/325 MG) 1 UDTAB TABLET PO PRN ×2 (11:31→17:47)
--- NOTE | 2017-10-12 11:40 | NUR ---
RN NOTES PATIENT HYPERTENSIVE. MOST LIKELY RELATED TO PAIN. WILL CONTROL PAIN AND SEE IF IT CORRECTS UNDERLYING HYPERTENSION.
--- NOTE | 2017-10-12 12:00 | NUR ---
RN NOTES PATIENT IS HYPERTENSIVE. MOST LIKELY PAIN RELATED. REPORTED TO DR. ANDREA. PAIN MEDICINE GIVEN. WILL MONITOR TO SEE IF RESOLVED.
--- NOTE | 2017-10-12 13:00 | NUR ---
RN NOTES BP GOING DOWN. VS CHANGE RELATED TO PAIN. WILL CONTINUE TO MONITOR.
[2017-10-12 16:00] VITALS: BP 154/82
--- NOTE | 2017-10-12 19:30 | NUR ---
RN CLOSING NOTES PATIENT RESTING COMFORTABLY IN BED. AOX3. PATIENT HAS A SITTER AT THE BED SIDE FOR SAFETY AND ASSISTANCE. DENIES ANY CP, SOB. COMPLAINING OF PAIN IN BOTH ARMS. L. ONE ATTEMPT. PATENT AND INTACT. BED LOCKED IN THE LOWEST POSITION. SIDE RAILS UP X2. CALL LIGHT WITHIN REACH. WILL CONTINUE TO MONITOR, ASSESS AND EDUCATE PATIENT THROUGHOUT SHIFT. Addendum: 10/12/17 at 1955 by NITIN LEVINE RN RN CLOSING NOTES PATIENT RESTING COMFORTABLY IN BED. AOX3. PATIENT HAS A SITTER AT THE BED SIDE FOR SAFETY AND ASSISTANCE. DENIES ANY CP, SOB. COMPLAINING OF MILD PAIN IN BOTH ARMS. BED LOCKED IN THE LOWEST POSITION. SIDE RAILS UP X2. CALL LIGHT WITHIN REACH. WILL ENDORSE TO NIGHT RN FOR AIDEN.
[2017-10-12 20:00] VITALS: BP 155/86
--- NOTE | 2017-10-12 20:00 | NUR ---
RN OPENING NOTES RECEIVED PATIENT RESTING COMFORTABLY IN BED. AOX3. NO SOB. RESPIRATION EVEN AND UNLABORED. NO COMPLAIN OF PAIN/DISCOMFORT. NO ACUTE DISTRESS NOTED. BED LOCKED IN THE LOWEST POSITION. SIDE RAILS UP X2. CALL LIGHT WITHIN REACH. WILL CONTINUE TO MONITOR THROUGHOUT SHIFT.
[2017-10-12] MEDS: HYDROCODONE/APAP 5/325MG 1 EACH TABLET PO PRN (21:17)
[2017-10-13 02:50] VITALS: BP 155/99
[2017-10-13] MEDS: oxyCODONE/APAP (5/325 MG) 1 UDTAB TABLET PO PRN ×3 (03:01→16:11)
--- NOTE | 2017-10-13 06:32 | NUR ---
RN CLOSING NOTE PATIENT IS ALERT AND ORIENTED X4. NO PAIN AT THIS TIME. NO SOB OR DISTRESS NOTED. SAFETY MEASURES IMPLEMENTED. ALL NEEDS ATTENDED AND ANTICIPATED. BED IN LOW AND LOCKED POSITION, SIDERAILS UPX2, CALL LIGHT WITHIN REACH, WILL CONTINUE TO MONITOR FOR AIDEN.
--- NOTE | 2017-10-13 07:25 | NUR ---
RN OPENING NOTES RECEIVED PATIENT RESTING COMFORTABLY IN BED. AOX3. PATIENT HAS A SITTER AT THE BED SIDE FOR SAFETY AND ASSISTANCE. DENIES ANY CP, SOB. COMPLAINING OF PAIN IN BOTH ARMS. IV ACCESS THE LEFT FOREARM 20G. PATENT AND INTACT. RESPIRATIONS EVEN AND UNLABORED. NO ACUTE DISTRESS. BED LOCKED IN THE LOWEST POSITION. SIDE RAILS UP X2. CALL LIGHT WITHIN REACH. WILL CONTINUE TO MONITOR, ASSESS AND EDUCATE PATIENT THROUGHOUT SHIFT.
[2017-10-13 07:57] LABS: BASOPHILS % (AUTO) 0.2 % (0.0-2.0); EOSINOPHILS # (AUTO) 0.2 /CMM (0.0-0.7); EOSINOPHILS % (AUTO) 2.1 % (0.0-6.0); HEMATOCRIT 36 % (39-51); HEMOGLOBIN 12.1 g/dL (13.5-17.5); LYMPHOCYTES # (AUTO) 1.3 /CMM (0.8-4.8); MEAN CORPUSCULAR HEMOGLOBIN 31 PG (26.0-33.0); MEAN CORPUSCULAR HGB CONC 34 g/dl (31.0-36.0); MEAN CORPUSCULAR VOLUME 91 fL (80-96); MONOCYTES # (AUTO) 0.7 /CMM (0.1-1.30); MONOCYTES % (AUTO) 9.3 % (2.0-12.0); NEUTROPHILS # (AUTO) 5.8 /CMM (1.8-8.9); NEUTROPHILS % (AUTO) 72.4 % (43.0-81.0); PLATELET COUNT (AUTO) 230 /CMM (150-450); RDW COEFFICIENT OF VARIATION 17.6 (11.5-15.0); RED BLOOD CELL COUNT(AUTO) 3.95 MIL/uL (4.5-6.0); WHITE BLOOD COUNT (AUTO) 7.9 K/uL (4.3-11.0)
[2017-10-13 08:00] VITALS: BP 156/78
[2017-10-13 08:12] LABS: CALCIUM, SERUM 10.1 mg/dL (8.5-10.1); CREATININE 1.1 mg/dL (0.6-1.3); PHOSPHORUS 4.5 mg/dL (2.5-4.9); POTASSIUM 3.9 mmol/L (3.5-5.1)
[2017-10-13] MEDS: MULTIVITAMINS,THERAGRAN 1 UDTAB TABLET PO SCH (09:02)
[2017-10-13] MEDS: FOLIC ACID 1 MG TABLET PO SCH (09:03)
[2017-10-13] MEDS: FERROUS SULFATE (325 MG) 325 MG/TAB TABLET PO SCH ×2 (09:03→18:36)
[2017-10-13] MEDS: CYANOCOBALAMIN 500 MCG TABLET PO SCH (09:03)
--- NOTE | 2017-10-13 11:24 | NUR ---
RN NOTES PATIENT STILL HYPERTENSIVE. DISCUSSED WITH DR. ANDREA. ORDERS FOR METOPROLOL 25MG BID PO. WILL CARRY OU.
[2017-10-13] MEDS: METOPROLOL TARTRATE 25 MG TABLET PO SCH ×2 (11:53→21:07)
[2017-10-13 16:00] VITALS: BP_SYST 135; BP_SYST 161; BP_DIAS 103; BP_DIAS 70
--- NOTE | 2017-10-13 18:00 | NUR ---
RN NOTES CONSENT FOR CONTRAST SIGNED FOR CT ABD, CHEST AND PELVES.
--- NOTE | 2017-10-13 19:04 | NUR ---
RN CLOSING NOTES PATIENT RESTING COMFORTABLY IN BED. AOX3. PATIENT HAS A SITTER AT THE BED SIDE FOR SAFETY AND ASSISTANCE. DENIES ANY CP, SOB. COMPLAINING OF MILD PAIN IN BOTH ARMS. BED LOCKED IN THE LOWEST POSITION. SIDE RAILS UP X2. CALL LIGHT WITHIN REACH. WILL ENDORSE TO NIGHT RN FOR AIDEN.
--- NOTE | 2017-10-13 19:30 | NUR ---
MS RN NOTES RECEIVED RESTING COMFORTABLY ON BED,A/O X4,S/P ORIF BILATERAL HUMERUS.DRESSING INTACT AND DRY.DVT PUMP NOT IN USED,PATIENT REFUSED.LEFT FOOT ARM DRESSING INTACT AND DRY.PAIN 6/10 ON PAIN SCALE,AND ITS TOLERABLE.INSTRUCTED NPO POST [place] FOR CT ABDOMEN AND PELVIS WITH AND WITHOUT CONTRAST.CALL LIGHT IN REACH NEEDS ANTICIPATED.
[2017-10-13 20:00] VITALS: BP 131/66
--- NOTE | 2017-10-13 21:00 | NUR ---
MS RN NOTES PAIN MANAGEMENT C/O BILATERAL UPPER ARM PAIN 6/10 ON PAIN SCALE.MEDICATED WITH NORCO 5/325MG,2 TABLET PO ORDERED FOR MODERATE PAIN.
[2017-10-13] MEDS: HYDROCODONE/APAP 5/325MG 1 EACH TABLET PO PRN (21:08)
--- NOTE | 2017-10-14 00:30 | NUR ---
MS RN NOTES AWAKE,C/O PAIN ON BILATERAL UPPER ARMS,9/10 ON PAIN SCALE.MEDICATED WITH PERCOCET 2 TABLET PO ORDERED FOR SEVERE PAIN.
[2017-10-14] MEDS: oxyCODONE/APAP (5/325 MG) 1 UDTAB TABLET PO PRN ×3 (00:31→23:06)
--- NOTE | 2017-10-14 03:00 | NUR ---
MS RN NOTES SOUND ASLEEP,KEPT WARM AND COMFORTABLE.
--- NOTE | 2017-10-14 07:13 | NUR ---
MS RN NOTES PAIN TOLERABLE AT THE MOMENT.PAIN MANAGEMENT EFFECTIVE.KEPT NPO POST [place] FOR CT CHEST,ABDOMEN AND PELVIS TO R/O METS ORDERED BY DR CABELLO.IN NO ACUTE DISTRESS.WILL ENDORSE TO DAY NURSE FOR AIDEN.
--- NOTE | 2017-10-14 07:30 | NUR ---
MS RN RECEIVED ON BED, AWAKE,ALERT,ORIENTED X4, NOT IN ANY FORM OF DISTRESS, RESPIRATIONS EVEN AND UNLABORED,NO SOB NOTED, LUNGS ARE CLEAR,ABDOMEN SOFT,POSITIVE BOWEL SOUND, DENIES PAIN AT THIS TIME, S/P BILATERAL HUMERAL ORIF, W/ DRESSINGS DRY AND INTACT, WILL MONITOR PATIENT'S CONDITION.
[2017-10-14 07:58] LABS: BASOPHILS % (AUTO) 0.2 % (0.0-2.0); EOSINOPHILS # (AUTO) 0.2 /CMM (0.0-0.7); EOSINOPHILS % (AUTO) 2.2 % (0.0-6.0); HEMATOCRIT 33 % (39-51); HEMOGLOBIN 11.2 g/dL (13.5-17.5); LYMPHOCYTES # (AUTO) 1.5 /CMM (0.8-4.8); LYMPHOCYTES % (AUTO) 18.9 % (20.0-44.0); MEAN CORPUSCULAR HEMOGLOBIN 31 PG (26.0-33.0); MEAN CORPUSCULAR HGB CONC 34 g/dl (31.0-36.0); MEAN CORPUSCULAR VOLUME 92 fL (80-96); MONOCYTES # (AUTO) 0.7 /CMM (0.1-1.30); MONOCYTES % (AUTO) 9.3 % (2.0-12.0); NEUTROPHILS # (AUTO) 5.3 /CMM (1.8-8.9); NEUTROPHILS % (AUTO) 69.4 % (43.0-81.0); PLATELET COUNT (AUTO) 214 /CMM (150-450); RDW COEFFICIENT OF VARIATION 17.4 (11.5-15.0); RED BLOOD CELL COUNT(AUTO) 3.61 MIL/uL (4.5-6.0); WHITE BLOOD COUNT (AUTO) 7.7 K/uL (4.3-11.0)
[2017-10-14 08:00] VITALS: BP 149/78
[2017-10-14 08:27] LABS: CREATININE 1.1 mg/dL (0.6-1.3); MAGNESIUM 1.9 mg/dL (1.8-2.4); PHOSPHORUS 4.7 mg/dL (2.5-4.9); POTASSIUM 3.9 mmol/L (3.5-5.1)
[2017-10-14] MEDS ORDERED: IV NS 0.9% 250 ML IV ONE (09:47)
[2017-10-14] MEDS ORDERED: IOHEXOL-300 100 ML VIAL IV ONE (09:47)
[2017-10-14] MEDS: HYDROCODONE/APAP 5/325MG 1 EACH TABLET PO PRN ×2 (10:21→18:12)
[2017-10-14] MEDS: CYANOCOBALAMIN 500 MCG TABLET PO SCH (10:24)
[2017-10-14] MEDS: FERROUS SULFATE (325 MG) 325 MG/TAB TABLET PO SCH ×2 (10:24→18:12)
[2017-10-14] MEDS: MULTIVITAMINS,THERAGRAN 1 UDTAB TABLET PO SCH (10:24)
[2017-10-14] MEDS: METOPROLOL TARTRATE 25 MG TABLET PO SCH ×2 (10:25→20:41)
[2017-10-14] MEDS: FOLIC ACID 1 MG TABLET PO SCH (10:25)
[2017-10-14 16:00] VITALS: BP 129/73
--- NOTE | 2017-10-14 19:30 | NUR ---
MS RN NOTES RECEIVED ON BED A/O C4,WATCHING TV PROGRAM.BILATERAL UPPER ARM DRESSING INTACT AND PATENT.PAIN TOLERABLE AT THE MOMENT.CLAIMED ABLE TO TO WALK AROUND.CALL LIGHT IN REACH,NEEDS ANTICIPATED.
[2017-10-14 20:00] VITALS: BP 120/69
[2017-10-14 20:55] VITALS: BP 126/69
--- NOTE | 2017-10-14 23:06 | NUR ---
MS RN NOTES PAIN MANAGEMENT C/O PAIN 9/10 ON PAIN SCALE,MEDICATED WITH PERCOCET 2 TBS PO ORDERED
[2017-10-15] MEDS: HYDROCODONE/APAP 5/325MG 1 EACH TABLET PO PRN ×2 (04:41→14:12)
--- NOTE | 2017-10-15 04:41 | NUR ---
MS RN NOTES PAIN MANAGEMENT C/O PAIN ON RIGHT AND LEFT HUMERUS,MEDICATED WITH NORCO 5/325MG.2 TABS PO FOR MODERATE PAIN 7/10 ON PAIN SCALE.
--- NOTE | 2017-10-15 06:43 | NUR ---
MS RN NOTES NO SIGNIFICANT CHANGE IN STATUS,PAIN MANAGEMENT EFFECTIVE.DRESSING INTACT ON BILATERAL HUMERUS.IN NO ACUTE DISTRESS.WILL ENDORSE TO DAY NURSE FOR AIDEN.
--- NOTE | 2017-10-15 07:39 | NUR ---
MS RN OPENING NOTES. PT RECEIVED A&0X3 AWAKE AND RESTING IN BED. PT TOLERATING ROOM AIR WITH NO SOB OR ANY SIGNS OF ACUTE DISTRESS OR DISCOMFORT. PT REPORTING BI LAT ARM PAIN AT TOLERABLE 7/10. PT WITH IVCX2 AT LEFT FA FLUSHED AND PATENT AND, IVC AT L FOOT SALINE LOCKED. PT BED IN LOWEST LOCKED POSITION WITH HANDRAILS X2 AND CALL [place] WITHIN REACH. PT BRIEFED ON TODAY'S POC AND IS WITHOUT CONCERN OR COMPLAINT AT THIS TIME.
[2017-10-15 08:00] VITALS: BP_SYST 125; BP_SYST 133; BP_DIAS 60; BP_DIAS 72
[2017-10-15] MEDS: MULTIVITAMINS,THERAGRAN 1 UDTAB TABLET PO SCH (09:00)
[2017-10-15] MEDS: FOLIC ACID 1 MG TABLET PO SCH (09:41)
[2017-10-15] MEDS: CYANOCOBALAMIN 500 MCG TABLET PO SCH (09:41)
[2017-10-15 09:42] VITALS: BP 133/72
[2017-10-15] MEDS: FERROUS SULFATE (325 MG) 325 MG/TAB TABLET PO SCH (09:42)
[2017-10-15] MEDS: METOPROLOL TARTRATE 25 MG TABLET PO SCH (09:42)
[2017-10-15] MEDS: ERGOCALCIFEROL (VITAMIN D 2) 50,000 UNIT CAPSULE PO SCH (09:43)
[2017-10-15] MEDS: oxyCODONE/APAP (5/325 MG) 1 UDTAB TABLET PO PRN (09:46)
--- NOTE | 2017-10-15 14:30 | NUR ---
MS RN CLOSING NOTES PT A&0X3 WITH GIRLFRIEND AT BEDSIDE. PT TOLERATING ROOM AIR WITH NO SOB. IVCX2 REMOVED WITH NAD AT SITES. PT REPORTING 6/10 PAIN. PT BREIFED ON SOH D/C PACKET AND GIVEN SCRIPTS AND FOLLOW UP NUMBERS FOR MD AND HHC. PT VERBALIZING UNDERSTANDING OF POC AND RESOURCES TO GET SCRIPTS AND CARE. PT WITH ALL BELONGINGS, DOCUMENT SIGNED. PT WITHOUT COCERNC OR COMPLAINT AT THIS TIME. PT ESCORTED TO CAR.
== END 2017-10-15 14:40 | disposition home health service (06) | DRG 680 ==
LOC: ER 13:49 → TELE 16:31 → MED 10-06 07:56
PROVIDERS: ADMIT Family Medicine; ATTEND Family Medicine
DX: C91.10 Chronic lymphocytic leukemia of B-cell type not having achieved remission (principal); C79.51 Secondary malignant neoplasm of bone; E87.1 Hypo-osmolality and hyponatremia; M84.421A Pathological fracture, right humerus, initial encounter for fracture; M84.422A Pathological fracture, left humerus, initial encounter for fracture; D64.9 Anemia, unspecified; F10.10 Alcohol abuse, uncomplicated; F17.210 Nicotine dependence, cigarettes, uncomplicated; Z80.3 Family history of malignant neoplasm of breast; E53.8 Deficiency of other specified B group vitamins; E61.1 Iron deficiency; E04.2 Nontoxic multinodular goiter
CPT/HCPCS: 36415; 71010-TC; 71270-TC; 73030-TC; 73060-TC; 74178; 76942-TC; 77012-TC; 80048-TC; 80053-TC; 80061-TC; 82232; 82272-TC; 82306; 82728-TC; 82746; 83540-TC; 83735-TC; 84100-TC; 84155; 84155-TC; 84156; 84165; 84166; 84439-TC; 84443-TC; 85025-TC; 85610-TC; 85730-TC; 86335; 86850-TC; 87081-TC; 93307-TC; 97116-TC; 97530-TC; A4565; A4606; A6209; A6402; G0480; J0690; J1100; J1885; J2250; J2270; J2310; J2405; J2704; J3010; J3490; J7030; J7040; J7050; Q9967; Z7610

== ENCOUNTER 2018-01-08 15:18 | Inpatient (IN) | payer MEDICAID ==
[~2018-01-08] VITALS: Ht 185.4 cm; Wt 82.1 kg
[~2018-01-08 15:18] MED LIST: ASPI-992 PO; CYAN500T4 PO; Ergocalciferol (Vitamin D 2) PO; FERR325T28 PO; FOLI1TAB16 PO; HYDR-3974 PO; MULT-24 PO
[2018-01-08 15:47] LABS: BASOPHILS % (AUTO) 0.6 % (0.0-2.0); EOSINOPHILS % (AUTO) 0.4 % (0.0-6.0); HEMATOCRIT 42 % (39-51); HEMOGLOBIN 14.3 g/dL (13.5-17.5); LYMPHOCYTES # (AUTO) 0.6 /CMM (0.8-4.8); LYMPHOCYTES % (AUTO) 19.5 % (20.0-44.0); MEAN CORPUSCULAR HEMOGLOBIN 27 PG (26.0-33.0); MEAN CORPUSCULAR HGB CONC 34 g/dl (31.0-36.0); MEAN CORPUSCULAR VOLUME 80 fL (80-96); MONOCYTES # (AUTO) 0.3 /CMM (0.1-1.30); NEUTROPHILS # (AUTO) 2.3 /CMM (1.8-8.9); NEUTROPHILS % (AUTO) 71.5 % (43.0-81.0); PLATELET COUNT (AUTO) 155 /CMM (150-450); RDW COEFFICIENT OF VARIATION 14.1 (11.5-15.0); RED BLOOD CELL COUNT(AUTO) 5.23 MIL/uL (4.5-6.0); WHITE BLOOD COUNT (AUTO) 3.2 K/uL (4.3-11.0)
[2018-01-08] MEDS ORDERED: DOCU100C36 PO (15:47)
[2018-01-08] MEDS ORDERED: HYDR-552 PO (15:47)
[2018-01-08] MEDS ORDERED: AMLO5TAB2 PO (15:47)
[2018-01-08 15:56] LABS: CALCIUM, SERUM 8.4 mg/dL (8.5-10.1); CARBON DIOXIDE 25 mmol/L (21-32); CHLORIDE 91 mmol/L (98-107); CREATININE 1.2 mg/dL (0.6-1.3); GLUCOSE 118 mg/dL (74-106); POTASSIUM 3.2 mmol/L (3.5-5.1); SODIUM SERUM 127 mmol/L (136-145); UREA NITROGEN, BLOOD 21 mg/dL (7-18)
[2018-01-08 16:00] LABS: INR 1.04 (0.85-1.15)
[2018-01-08 16:02] LABS: ALANINE AMINOTRANSFERASE 17 U/L (12-78); ALBUMIN 2.9 g/dL (3.4-5.0); ALKALINE PHOSPHATASE 286 U/L (46-116); ASPARTATE AMINOTRANSFERASE 34 U/L (15-37); BILIRUBIN,DIRECT 0.4 mg/dL (0.0-0.2); BILIRUBIN,TOTAL 1.2 mg/dL (0.2-1.0); TOTAL PROTEIN, SERUM 8.5 g/dL (6.4-8.2)
[2018-01-08 16:20] LABS: TROPONIN I < 0.017 ng/mL (0.00-0.056)
[2018-01-08 16:39] LABS: THYROID STIMULATING HORMONE 0.975 uIU/mL (0.358-3.74)
[2018-01-08 18:00] VITALS: BP 178/84
[2018-01-08] MEDS ORDERED: MAGNESIUM HYDROXIDE 30 ML UDC PO PRN (18:30)
[2018-01-08] MEDS ORDERED: MAG HYDROX/AL HYDROX/SIMETH 30 ML UDC PO PRN (18:30)
[2018-01-08] MEDS ORDERED: Z GUARD REMEDY 2 OZ OINT TP PRN (18:30)
[2018-01-08] MEDS ORDERED: ONDANSETRON HCL/PF 4 MG/2 ML VIAL IVP PRN (18:30)
[2018-01-08] MEDS ORDERED: ACETAMINOPHEN 325 MG TABLET PO PRN (18:30)
[2018-01-08] MEDS ORDERED: ZOLPIDEM TARTRATE 5 MG TABLET PO PRN (18:30)
[2018-01-08 18:58] VITALS: BP 178/84
[2018-01-08] MEDS ORDERED: MORPHINE SULFATE INJ 4 MG/ML DISP.SYRIN IV PRN (19:00)
[2018-01-08] MEDS: MORPHINE SULFATE INJ 4 MG/ML DISP.SYRIN IV PRN (19:05)
[2018-01-08 20:00] VITALS: BP 142/68
[2018-01-08] MEDS: IV NS 0.9% 1,000 ML IV PRN (21:42)
[2018-01-08] MEDS: HYDROCODONE/APAP 5/325MG 1 EACH TABLET PO PRN (21:42)
[2018-01-08] MEDS: ENOXAPARIN SODIUM 40 MG/0.4 ML DISP.SYRIN SQ SCH (21:44)
[2018-01-09] MEDS: MORPHINE SULFATE INJ 4 MG/ML DISP.SYRIN IV PRN ×4 (02:32→20:55)
[2018-01-09 04:00] VITALS: BP 136/69
[2018-01-09] MEDS: HYDROCODONE/APAP 5/325MG 1 EACH TABLET PO PRN ×3 (06:21→18:07)
[2018-01-09 06:50] LABS: CALCIUM, SERUM 8.2 mg/dL (8.5-10.1); CREATININE 1.1 mg/dL (0.6-1.3); MAGNESIUM 1.8 mg/dL (1.8-2.4); PHOSPHORUS 2.9 mg/dL (2.5-4.9); POTASSIUM 3.3 mmol/L (3.5-5.1)
[2018-01-09 06:54] LABS: BASOPHILS % (AUTO) 0.4 % (0.0-2.0); EOSINOPHILS % (AUTO) 0.7 % (0.0-6.0); HEMATOCRIT 38 % (39-51); HEMOGLOBIN 12.8 g/dL (13.5-17.5); LYMPHOCYTES # (AUTO) 0.8 /CMM (0.8-4.8); LYMPHOCYTES % (AUTO) 27.5 % (20.0-44.0); MEAN CORPUSCULAR HEMOGLOBIN 27 PG (26.0-33.0); MEAN CORPUSCULAR HGB CONC 34 g/dl (31.0-36.0); MEAN CORPUSCULAR VOLUME 81 fL (80-96); MONOCYTES # (AUTO) 0.2 /CMM (0.1-1.30); MONOCYTES % (AUTO) 7.6 % (2.0-12.0); NEUTROPHILS # (AUTO) 1.8 /CMM (1.8-8.9); NEUTROPHILS % (AUTO) 63.8 % (43.0-81.0); PLATELET COUNT (AUTO) 110 /CMM (150-450); RDW COEFFICIENT OF VARIATION 15.6 (11.5-15.0); RED BLOOD CELL COUNT(AUTO) 4.69 MIL/uL (4.5-6.0); WHITE BLOOD COUNT (AUTO) 2.9 K/uL (4.3-11.0)
[2018-01-09 08:00] VITALS: BP 129/66
[2018-01-09] MEDS ORDERED: POTASSIUM CHLORIDE 20 MEQ TAB.PRT.SR PO SCH (08:30)
[2018-01-09 08:36] VITALS: BP 129/66
[2018-01-09] MEDS: DOCUSATE SODIUM 100 MG CAPSULE PO SCH ×2 (09:10→16:18)
[2018-01-09] MEDS: AMLODIPINE BESYLATE 5 MG TABLET PO SCH (09:10)
[2018-01-09] MEDS: IV NS 0.9% 1,000 ML IV PRN (09:19)
[2018-01-09 10:08] LABS: NEUTROPHILS % (MANUAL) 67 (42-76)
[2018-01-09 10:09] LABS: EOSINOPHILS % (MANUAL) 1 % (0-4); LYMPHOCYTES % (MANUAL) 27 % (16-48); MONOCYTES % (MANUAL) 5 % (0-11.0)
[2018-01-09 16:00] VITALS: BP 138/63
[2018-01-09] MEDS: ENOXAPARIN SODIUM 40 MG/0.4 ML DISP.SYRIN SQ SCH (20:56)
[2018-01-09 21:00] VITALS: BP 135/73
[2018-01-10] MEDS: IV NS 0.9% 1,000 ML IV PRN ×3 (00:06→22:43)
[2018-01-10] MEDS: MORPHINE SULFATE INJ 4 MG/ML DISP.SYRIN IV PRN ×4 (03:29→22:43)
[2018-01-10 04:00] VITALS: BP 132/61
[2018-01-10] MEDS: HYDROCODONE/APAP 5/325MG 1 EACH TABLET PO PRN ×3 (06:56→20:16)
[2018-01-10 07:28] LABS: CALCIUM, SERUM 7.6 mg/dL (8.5-10.1); CREATININE 1.1 mg/dL (0.6-1.3); POTASSIUM 3.5 mmol/L (3.5-5.1)
[2018-01-10 07:40] LABS: THYROID STIMULATING HORMONE 1.079 uIU/mL (0.358-3.74)
[2018-01-10 08:00] VITALS: BP 125/61
[2018-01-10 09:00] VITALS: BP 125/61
[2018-01-10] MEDS: AMLODIPINE BESYLATE 5 MG TABLET PO SCH (09:15)
[2018-01-10] MEDS: DOCUSATE SODIUM 100 MG CAPSULE PO SCH ×2 (09:15→16:08)
[2018-01-10] MEDS: FOLIC ACID 1 MG TABLET PO SCH (09:15)
[2018-01-10] MEDS: FERROUS SULFATE (325 MG) 325 MG/TAB TABLET PO SCH ×2 (09:15→16:08)
[2018-01-10] MEDS: CYANOCOBALAMIN 1,000 MCG/ML VIAL IM SCH (09:16)
[2018-01-10] MEDS: BACI/NEOM/POLY B OINT PKT 1 UDPKT PACKET TP SCH ×2 (11:04→16:08)
[2018-01-10 15:30] VITALS: BP 122/59
[2018-01-10 15:43] LABS: BASOPHILS % (AUTO) 0.4 % (0.0-2.0); EOSINOPHILS % (AUTO) 1.4 % (0.0-6.0); HEMATOCRIT 34 % (39-51); HEMOGLOBIN 11.6 g/dL (13.5-17.5); LYMPHOCYTES # (AUTO) 0.7 /CMM (0.8-4.8); LYMPHOCYTES % (AUTO) 27.2 % (20.0-44.0); MEAN CORPUSCULAR HEMOGLOBIN 28 PG (26.0-33.0); MEAN CORPUSCULAR HGB CONC 34 g/dl (31.0-36.0); MEAN CORPUSCULAR VOLUME 81 fL (80-96); MONOCYTES # (AUTO) 0.2 /CMM (0.1-1.30); MONOCYTES % (AUTO) 6.7 % (2.0-12.0); NEUTROPHILS # (AUTO) 1.7 /CMM (1.8-8.9); NEUTROPHILS % (AUTO) 64.3 % (43.0-81.0); PLATELET COUNT (AUTO) 111 /CMM (150-450); RDW COEFFICIENT OF VARIATION 15.9 (11.5-15.0); WHITE BLOOD COUNT (AUTO) 2.6 K/uL (4.3-11.0)
[2018-01-10] MEDS: NEOMY SULF/BACITRAC ZN/POLY 15 GM TUBE TP SCH (16:18)
[2018-01-10 20:00] VITALS: BP 119/57
[2018-01-10] MEDS: ENOXAPARIN SODIUM 40 MG/0.4 ML DISP.SYRIN SQ SCH (20:19)
[2018-01-11 01:14] LABS: APPEARANCE,URINE CLEAR (CLEAR); BILIRUBIN,URINE NEGATIVE (NEGATIVE); BLOOD, URINE NEGATIVE Ery/uL (NEGATIVE); KETONES,URINE NEGATIVE (NEGATIVE); LEUKOCYTE ESTERASE ,URINE NEGATIVE (NEGATIVE); NITRITE, URINE NEGATIVE (NEGATIVE); PH,URINE 7.5 (5.0-8.0); PROTEIN,URINE TRACE mg/dl (NEGATIVE); UGLUCOSE NEGATIVE (NEGATIVE)
[2018-01-11 01:20] LABS: COLOR,URINE DARK YELLOW (YELLOW)
[2018-01-11 01:25] LABS: BACTERIA,URINE Few /HPF (None Seen); RBC,URINE 0-2 /HPF (0-2); SQUAMOUS EPITHELIAL CELL,UR Few /HPF (None Seen); WBC,URINE 0-2 /HPF (0-3)
[2018-01-11 04:00] VITALS: BP 130/65
[2018-01-11] MEDS: HYDROCODONE/APAP 5/325MG 1 EACH TABLET PO PRN ×4 (04:15→22:51)
[2018-01-11] MEDS: MORPHINE SULFATE INJ 4 MG/ML DISP.SYRIN IV PRN ×3 (05:26→20:12)
[2018-01-11 06:56] LABS: BASOPHILS % (AUTO) 0.4 % (0.0-2.0); EOSINOPHILS % (AUTO) 1.7 % (0.0-6.0); HEMATOCRIT 33 % (39-51); HEMOGLOBIN 11.3 g/dL (13.5-17.5); LYMPHOCYTES # (AUTO) 0.6 /CMM (0.8-4.8); LYMPHOCYTES % (AUTO) 23.8 % (20.0-44.0); MEAN CORPUSCULAR HEMOGLOBIN 28 PG (26.0-33.0); MEAN CORPUSCULAR HGB CONC 35 g/dl (31.0-36.0); MEAN CORPUSCULAR VOLUME 81 fL (80-96); MONOCYTES # (AUTO) 0.2 /CMM (0.1-1.30); MONOCYTES % (AUTO) 7.6 % (2.0-12.0); NEUTROPHILS # (AUTO) 1.6 /CMM (1.8-8.9); NEUTROPHILS % (AUTO) 66.5 % (43.0-81.0); PLATELET COUNT (AUTO) 92 /CMM (150-450); RDW COEFFICIENT OF VARIATION 16.1 (11.5-15.0); RED BLOOD CELL COUNT(AUTO) 4.03 MIL/uL (4.5-6.0); WHITE BLOOD COUNT (AUTO) 2.5 K/uL (4.3-11.0)
[2018-01-11 07:18] LABS: CALCIUM, SERUM 7.6 mg/dL (8.5-10.1); CREATININE 0.9 mg/dL (0.6-1.3); POTASSIUM 4.1 mmol/L (3.5-5.1)
[2018-01-11 08:00] VITALS: BP 131/64
[2018-01-11] MEDS: FERROUS SULFATE (325 MG) 325 MG/TAB TABLET PO SCH ×2 (08:46→17:35)
[2018-01-11] MEDS: FOLIC ACID 1 MG TABLET PO SCH (08:46)
[2018-01-11] MEDS: DOCUSATE SODIUM 100 MG CAPSULE PO SCH ×2 (08:46→17:35)
[2018-01-11] MEDS: NEOMY SULF/BACITRAC ZN/POLY 15 GM TUBE TP SCH ×2 (08:47→17:34)
[2018-01-11] MEDS: CYANOCOBALAMIN 1,000 MCG/ML VIAL IM SCH (08:47)
[2018-01-11] MEDS: AMLODIPINE BESYLATE 5 MG TABLET PO SCH (08:47)
[2018-01-11] MEDS: BOOST PLUS FOOD-VANILLA 237 ML BOX PO SCH (08:47)
[2018-01-11 09:38] LABS: LYMPHOCYTES % (MANUAL) 26 % (16-48); MONOCYTES % (MANUAL) 5 % (0-11.0); NEUTROPHILS % (MANUAL) 67 (42-76)
[2018-01-11 09:39] LABS: EOSINOPHILS % (MANUAL) 2 % (0-4)
[2018-01-11 16:00] VITALS: BP 134/66
[2018-01-11 20:00] VITALS: BP 123/61
[2018-01-11] MEDS: ENOXAPARIN SODIUM 40 MG/0.4 ML DISP.SYRIN SQ SCH (21:34)
[2018-01-12] MEDS: MORPHINE SULFATE INJ 4 MG/ML DISP.SYRIN IV PRN ×4 (02:01→20:19)
[2018-01-12 04:00] VITALS: BP 142/68
[2018-01-12 04:12] VITALS: BP 142/68
[2018-01-12] MEDS: HYDROCODONE/APAP 5/325MG 1 EACH TABLET PO PRN ×3 (05:50→18:20)
[2018-01-12 08:00] VITALS: BP 128/65
[2018-01-12] MEDS: FERROUS SULFATE (325 MG) 325 MG/TAB TABLET PO SCH ×2 (08:08→17:20)
[2018-01-12] MEDS: AMLODIPINE BESYLATE 5 MG TABLET PO SCH (08:08)
[2018-01-12] MEDS: DOCUSATE SODIUM 100 MG CAPSULE PO SCH ×2 (08:08→17:19)
[2018-01-12] MEDS: FOLIC ACID 1 MG TABLET PO SCH (08:08)
[2018-01-12] MEDS: NEOMY SULF/BACITRAC ZN/POLY 15 GM TUBE TP SCH ×2 (09:41→17:20)
[2018-01-12] MEDS: BOOST PLUS FOOD-VANILLA 237 ML BOX PO SCH (09:41)
[2018-01-12] MEDS: CYANOCOBALAMIN 1,000 MCG/ML VIAL IM SCH (09:55)
[2018-01-12] MEDS ORDERED: FOLI1TAB16 PO (11:28)
[2018-01-12] MEDS ORDERED: FERR325T28 PO (11:28)
[2018-01-12 16:00] VITALS: BP 133/66
[2018-01-12 19:59] VITALS: BP 137/68
[2018-01-12 20:02] VITALS: BP 137/68
[2018-01-12] MEDS: ENOXAPARIN SODIUM 40 MG/0.4 ML DISP.SYRIN SQ SCH (20:30)
== END 2018-01-12 21:03 | disposition home or self-care (01) | DRG 43 ==
LOC: ER 15:20 → MEDSG1 17:08 → MEDSG2 01-12 03:54
PROVIDERS: ADMIT Internal Medicine; ATTEND Internal Medicine
DX: G61.81 Chronic inflammatory demyelinating polyneuritis (principal); N17.0 Acute kidney failure with tubular necrosis; D61.810 Antineoplastic chemotherapy induced pancytopenia; D61.818 Other pancytopenia; C79.51 Secondary malignant neoplasm of bone; C85.90 Non-Hodgkin lymphoma, unspecified, unspecified site; E44.0 Moderate protein-calorie malnutrition; E88.09 Other disorders of plasma-protein metabolism, not elsewhere classified; C64.9 Malignant neoplasm of unspecified kidney, except renal pelvis; E86.1 Hypovolemia; R53.1 Weakness; E87.1 Hypo-osmolality and hyponatremia; I10 Essential (primary) hypertension; R62.7 Adult failure to thrive; E46 Unspecified protein-calorie malnutrition; E87.6 Hypokalemia; F17.210 Nicotine dependence, cigarettes, uncomplicated; R29.6 Repeated falls; R22.2 Localized swelling, mass and lump, trunk; T45.1X5A Adverse effect of antineoplastic and immunosuppressive drugs, initial encounter; Y92.009 Unspecified place in unspecified non-institutional (private) residence as the place of occurrence of the external cause; Z68.23 Body mass index [BMI] 23.0-23.9, adult; S90.121A Contusion of right lesser toe(s) without damage to nail, initial encounter; Z92.21 Personal history of antineoplastic chemotherapy; E53.8 Deficiency of other specified B group vitamins; E04.2 Nontoxic multinodular goiter
CPT/HCPCS: 36415; 70450-TC; 71045-TC; 80048-TC; 80076-TC; 81000-TC; 82728-TC; 82746; 83540-TC; 83735-TC; 84100-TC; 84439-TC; 84443-TC; 84484-TC; 85025-TC; 85730-TC; 87081-TC; 97110-TC; 97116-TC; 97530-TC; A4606; A6402; J1650; J2270; J3420; J7030; Z7610